=== PATIENT | female | born 1990 | race Caucasian/White ===

== ENCOUNTER → 2018-08-21 | Outpatient (CLI) | payer BC | LOC: RAD 07:56 | DX: R35.0 Frequency of micturition (principal); R39.81 Functional urinary incontinence ==

== ENCOUNTER → 2021-05-05 | Outpatient (CLI) | payer OTHER | LOC: ULTRA 09:34 | PROVIDERS: ATTEND Family Medicine | DX: N63.11 Unspecified lump in the right breast, upper outer quadrant (principal) ==